=== PATIENT | female | born 1955 ===

== ENCOUNTER 2021-04-18 17:19 | Emergency (ER) | payer BC ==
[~2021-04-18] VITALS: Ht 152.4 cm; Wt 72.0 kg
[2021-04-18] MEDS ORDERED: ADENOSINE 6 MG/2 ML ONE ×2 (17:32→17:37)
--- NOTE | 2021-04-18 17:53 | NUR ---
PT CAME IN [place] HEART PALP AND CP. PT WAS AT [facility] WHEN SHE FELT HER HEART RACING AND WAS HAVING CHEST PAIN. PT CAME TO ER AFTER [facility] AND EKG SHOWED SHE WAS IN SVT. PT BROUGHT TO ROOM. CONNECTED TO ALL MONITORS. CRASH CART IN ROOM AND DEFIB PLACED PLACED. IV STARTED. MD BEDSIDE. 6MG ADENSIONE ADM WITH SUCCESS. PT RESTING IN [facility]. DAUGHTER BEDSIDE. WCTM
[2021-04-18] MEDS ORDERED: ADENOSINE 6 MG/2 ML IVPush ONE (18:00)
[2021-04-18 18:07] LABS: BASOPHILS % (AUTO) 1 % (0-1); EOSINOPHILS % (AUTO) 3 % (1-7); LYMPHOCYTES % (AUTO) 31 % (22-44); MEAN CORPUSCULAR HEMOGLOBIN 31.4 pg (27.0-34.8); MEAN CORPUSCULAR HGB CONC 34.2 g/dL (32.4-35.8); MEAN PLATELET VOLUME 7.6 fL (7.4-10.4); MONOCYTES % (AUTO) 7 % (2-9); NEUTROPHILS % (AUTO) 58 % (42-75); PLATELET COUNT 304 x10^3/uL (130-400); RED BLOOD COUNT 4.22 x10^6/uL (3.82-5.3); RED CELL DISTRIBUTION WIDTH 14.1 % (9.6-15.2)
[2021-04-18 18:19] LABS: ALBUMIN 3.7 g/dL (3.4-5.0); ANION GAP 8 mmol/L (5-15); CALCIUM 8.7 mg/dL (8.5-10.1); CHLORIDE 107 mmol/L (98-107); CREATININE 0.88 mg/dL (0.55-1.02)
[2021-04-18 19:58] VITALS: BP 134/74
== END 2021-04-18 20:24 | disposition home or self-care (01) ==
LOC: ED 20:00
DX: I47.1 Supraventricular tachycardia (principal)
CPT/HCPCS: 36415; 71045; 80048; 82040; 84443; 85025; 93005; 96374; 99285; J0153